=== PATIENT | male | born 1965 | race Caucasian/White ===

== ENCOUNTER 2021-08-11 11:03 | Emergency (ER) | payer MEDICARE, MEDICAID ==
[~2021-08-11] VITALS: Ht 177.8 cm; Wt 81.8 kg
[~2021-08-11 11:03] MED LIST: DIVA500T58; GABA-530 PO; HYDR25TA5 PO; IBUP-1984 PO; LISI10TA27 PO; MULT-1179 PO; PALI6TAB3 PO
[2021-08-11 11:06] VITALS: BP 131/90
== END 2021-08-11 16:49 | disposition left against medical advice (07) ==
LOC: ER 11:04
DX: Z53.21 Procedure and treatment not carried out due to patient leaving prior to being seen by health care provider (principal)